=== PATIENT | female | born 1990 | race Caucasian/White ===

== ENCOUNTER 2018-10-23 20:12 | Emergency (ER) | payer SELFPAY ==
[~2018-10-23] VITALS: Ht 170.2 cm; Wt 104.3 kg
--- OUTSIDE RECORDS SUMMARY | 2018-10-23 20:14 | XMS REPORT | Continuity of Care Document ---
Author Author [facility] Interface Address Unknown Phone Unavailable Problems Problem Status Onset Date Classification Date Reported Comments Source 15460 X 10 Active 05/24/2015 [facility] MPDS - Myofacial pain dysfunction syndrome<sup>1</sup> Active 03/01/2015 Problem 10/15/2018 Data migrated from [employer] on 09/08/15. Carries FM dx as well. Originally documented as Fibromyalgia. [facility] Obstructive sleep apnea syndrome<sup>2</sup> Active 03/01/2015 Problem 10/15/2018 Data migrated from [employer] on 09/08/15. Untreated. Originally documented as EARL (obstructive sleep apnea). [facility] Group Refractory migraine without aura<sup>3</sup> Active 03/01/2015 Problem 10/15/2018 Data migrated from [employer] on 09/08/15. Intractable daily migraine with very severe migraines weekly. No response to propranolol and only temporary response to TPM. She did not tolerate nortriptyline though I am not sure that the problem was not being off of Cymbalta. Meanwhile, she was listed at the last appt as having not responded to VPA which was mistaken. She has not taken the medication. Originally documented as Common migraine with intractable migraine. [facility] Fibromyalgia Active Problem 07/29/2015 Paulino Malik EARL Active Problem 07/29/2015 Paulino Moody Common migraine with intractable migraine Active Problem 07/29/2015 Paulino Moody Obstructive sleep apnea Active Diagnosis 07/29/2015 Paulino Malik Memory loss Active Problem 10/15/2018 [facility] Anxiety Active Problem 10/15/2018 [facility] Depression Active Problem 10/15/2018 [facility] Headache Active Problem 10/15/2018 [facility] Myalgia Active Problem 10/15/2018 [facility] Obesity Active Problem 10/15/2018 [facility] Medications Medication Details Route Status Patient Instructions Ordering Provider Order Date Source DULoxetine 60 mg oral delayed release capsule See Instructions, # 30 ea, TAKE ONE (1) CAPSULE(S) BY MOUTH DAILY AT BEDTIME., 05/24/18 11:46:04 CDT, Pharmacy: [facility] No Longer Active 03/27/2018 Medical Group DULoxetine 30 mg oral delayed release capsule See Instructions, # 30 ea, TAKE ONE (1) CAPSULE(S) BY MOUTH DAILY., Pharmacy: [facility] Active 03/27/2018 Medical Group DULoxetine 60 mg oral delayed release capsule See Instructions, # 30 ea, Refill(s) 1, TAKE ONE (1) CAPSULE(S) BY MOUTH DAILY AT BEDTIME., Pharmacy: [facility] Active 01/23/2018 [facility] Group DULoxetine 30 mg oral delayed release capsule See Instructions, # 30 ea, Refill(s) 1, TAKE ONE (1) CAPSULE(S) BY MOUTH DAILY., Pharmacy: [facility] Active 01/23/2018 [facility] Group DULoxetine 60 mg oral delayed release capsule See Instructions, # 30 ea, TAKE ONE (1) CAPSULE(S) BY MOUTH DAILY AT BEDTIME., Pharmacy: [facility] Active 12/19/2017 [facility] Group DULoxetine 30 mg oral delayed release capsule See Instructions, # 30 ea, TAKE ONE (1) CAPSULE(S) BY MOUTH DAILY., Pharmacy: [facility] Inactive 12/19/2017 [facility] Group DULoxetine 60 mg oral delayed release capsule See Instructions, # 30 ea, Refill(s) 1, TAKE ONE (1) CAPSULE(S) BY MOUTH DAILY AT BEDTIME., Pharmacy: [facility] No Longer Active 10/17/2017 [facility] Group DULoxetine 30 mg oral delayed release capsule See Instructions, # 30 ea, Refill(s) 1, TAKE ONE (1) CAPSULE(S) BY MOUTH DAILY., Pharmacy: [facility] Inactive 10/17/2017 [facility] Group DULoxetine 30 mg oral delayed release capsule See Instructions, # 30 ea, TAKE ONE (1) CAPSULE(S) BY MOUTH DAILY., Pharmacy: [facility] No Long[facility] Active 09/20/2017 [facility] Group DULoxetine 60 mg oral delayed release capsule See Instructions, # 30 ea, TAKE ONE (1) CAPSULE(S) BY MOUTH DAILY AT BEDTIME., Pharmacy: [facility] Active 09/20/2017 [facility] Group DULoxetine 60 mg oral delayed release capsule See Instructions, # 30 ea, TAKE ONE (1) CAPSULE(S) BY MOUTH DAILY AT BEDTIME., Pharmacy: [facility] [place] Active 08/12/2017 Medical Group DULoxetine 30 mg oral delayed release capsule See Instructions, # 30 ea, TAKE ONE (1) CAPSULE(S) BY MOUTH DAILY., Pharmacy: [facility] [place] Inactive 08/12/2017 Medical Group Hydrocodone-Acetaminophen 1 tablet as needed Orally Active 5- 325 MG Orally every four hours Moody 03/29/2015 Paulino Malik Depakote ER 1 tablet Orally Active 500 mg Orally daily at bedtime Moody 02/27/2015 Paulino Malik Nortriptyline HCl 1 capsule for 3 days then 2 for 3 days then 3 for 3 days then 4 thereafter Orally Active 10 mg Orally once every night Moody 01/02/2015 Paulino Moody Duloxetine HCl tk 1 c po qd Oral Active 60 MG Oral once a day Moody Paulino Malik Sumatriptan Succinate 1 injection Subcutaneous Active 6 MG/0.5ML Subcutaneous twice a day (bid) as needed (prn) Malik Paulino Malik Sodium Bicarbonate 1 tablet Orally Active 650 MG Orally twice a day (bid) Moody Paulino Malik Zonisamide 5 capsules Oral Active 100 mg Oral Once a day Malik Paulino Moody Allergies, Adverse Reactions, Alerts Substance Category Reaction Severity Reaction type Status Date Reported Comments Source N.K.D.A. Adverse Reaction Info Not Available Adverse Reaction Active 02/27/2015 Paulino Malik Immunizations Immunization Date Given Site Status Last Updated Comments Source Results Order Name Results Value Reference Range Date Interpretation Comments Source Vital Signs Vital Sign Value Date Comments Source Weight 190.6 02/27/2015 Paulino Malik Height 67 02/27/2015 Paulino Moody Heart Rate 91 02/27/2015 Paulino Malik Diastolic (mm Hg) 81 02/27/2015 Paulino Moody Systolic (mm Hg) 117 02/27/2015 Paulino Malik Encounters Location Location Details Encounter Type Encounter Number Reason For Visit Attending Provider ADM Date DC Date Status Source Paulino Gan [place], [place] Migraine Headache started 12 years ago;Something came up. Cancelled on 06/10/14 at 4:11 PM. [id number] 01/02/2015 01/02/2015 Paulino Gan MD, PA Migraine Headache started 12 years ago;Something came up. Cancelled on 06/10/14 at 4:11 PM. [id number] 01/02/2015 01/02/2015 Paulino Gan MD, PA Migraine Headache started 12 years ago;Something came up. Cancelled on 06/10/14 at 4:11 PM. [id number] 01/02/2015 01/02/2015 Paulino Gan MD, PA Migraine Headache started 12 years ago;Something came up. Cancelled on 06/10/14 at 4:11 PM. [id number] 01/02/2015 01/02/2015 Paulino Gan MD, [place] Nortiptyline side effects [id number] 01/27/2015 01/27/2015 Paulino Gan MD, [place] Nortiptyline side effects [id number] 01/27/2015 01/27/2015 Paulino Gan MD, [place] Nortiptyline side effects [id number] 01/27/2015 01/27/2015 Paulino Gan MD, [place] Nortiptyline side effects [id number] 01/27/2015 01/27/2015 Paulino Gan MD, PA 3 mo fu [id number] 02/27/2015 02/27/2015 Paulino Gan MD, PA 3 mo fu [id number] 02/27/2015 02/27/2015 Paulino Gan MD, PA 3 mo fu [id number] 02/27/2015 02/27/2015 Paulino Gan MD, PA 3 mo fu [id number] 02/27/2015 02/27/2015 Paulino Gan MD, PA Doctors letter [id number] 03/05/2015 03/05/2015 Paulino Gan MD, PA Doctors letter [id number] 03/05/2015 03/05/2015 Paulino Gan MD, [place] Doctors letter [id number] 03/05/2015 03/05/2015 Paulino Gan MD, [place] Doctors letter [id number] 03/05/2015 03/05/2015 Paulino Gan MD, [place] [id number] 03/05/2015 03/05/2015 Paulino Gan MD, [place] [id number] 03/05/2015 03/05/2015 Paulino Gan MD, [place] [id number] 03/05/2015 03/05/2015 Paulino Gan MD, [place] [id number] 03/05/2015 03/05/2015 Paulino Gan [facility] [id number] NICHOLAS ELLIOTT 04/21/2015 Active [facility] Outpatient [id number] DIONYSIA JEANNE 05/09/2015 Active [facility] Outpatient [id number] DIONYSIA JEANNE 05/26/2015 Active [facility] Outpatient [id number] Non Physician 06/05/2015 06/06/2015 [facility] Outpatient [id number] DIONYSIA JEANNE 06/11/2015 Active [facility] Outpatient [id number] DIONYSIA JEANNE 07/15/2015 Active [facility] Paulino Gan MD, PA Needs referral [id number] 07/25/2015 07/25/2015 Paulino Gan Outpatient [id number] DIONYSIA JEANNE 07/30/2015 Active [facility] Outpatient [id number] NICHOLAS ELLIOTT 09/18/2015 Active [facility] Outpatient [id number] DIONYSIA JEANNE 10/20/2015 Active [facility] Outpatient [id number] DIONYSIA JEANNE 01/15/2016 Active [facility] Outpatient [id number] DIONYSIA JEANNE 02/24/2016 Active [facility] Outpatient [id number] DIONYSIA JEANNE 06/23/2016 Active [facility] Outpatient [id number] DIONYSIA JEANNE 08/12/2016 Active [facility] Outpatient [id number] NICHOLAS ELLIOTT 09/30/2016 Active [facility] Outpatient [id number] DIONYSIA JEANNE 02/03/2017 Active [facility] Phone Message [id number] 08/12/2017 08/14/2017 Medical Group [facility] Phone Message [id number] 09/20/2017 09/22/2017 Medical Group [facility] Phone Message [id number] 10/17/2017 10/19/2017 Medical Group Outpatient [id number] HALIMA FLURY 11/08/2017 Active [facility] Ambulatory Pre-Reg [id number] Halima Flury 11/08/2017 11/08/2017 Medical Group [facility] Phone Message [id number] 12/19/2017 12/21/2017 [facility] Phone Message [id number] 01/23/2018 01/25/2018 [facility] Phone Message [id number] 01/23/2018 01/25/2018 [facility] Phone Message [id number] 03/27/2018 03/29/2018 [facility] Phone Message [id number] 05/01/2018 05/03/2018 Medical [facility] Outpatient [id number] HALIMA MACKAY 05/24/2018 Active [facility] Outpatient [id number] HALIMA MACKAY 05/23/2019 Active [facility] Procedures Procedure Code Date Perfomer Comments Source Implantation of electronic stimulator into peripheral nerve<sup>1</sup> [id number] 02/26/2016 Dr. Rader in [facility]
--- OUTSIDE RECORDS SUMMARY | 2018-10-23 20:15 | XMS REPORT | Summary of Care ---
Author Author [facility] Address Unknown Phone Unavailable Encounter BOAZ Kumar(AZRA) [id number] Date(s): 06/05/15 - 06/05/15 [place] [address]173 [address] [phone] Discharge Disposition: Home Attending Physician: Physician, Non Associated MD Referring Physician: Physician, Non Associated MD Vital Signs No data available for this section Problem List Condition Effective Dates Status Health Status Informant Memory Active loss(Confirmed) Anxiety(Confirmed) Active Depression(Confirmed Active ) Headache(Confirmed) Active Myalgia(Confirmed) Active Allergies, Adverse Reactions, Alerts Substance Reaction Severity Status NKDA Active Medications No data available for this section Results No data available for this section Immunizations No data available for this section Procedures No data available for this section Social History Social History Type Response 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 Other: lives with 6yr old daughter and 15 month son. Smoking Status Current every day smoker; Exposure to Tobacco Smoke self; Cigarette Smoking Last 365 Days Yes; Reg Smoking Cessation Counseling Yes Assessment and Plan No data available for this section
--- OUTSIDE RECORDS SUMMARY | 2018-10-23 20:15 | XMS REPORT | Summary of Care ---
Author Author [facility] Organization [facility] Address Unknown Phone Unavailable Encounter BOAZ Kumar(FIN) [id number] Date(s): 01/23/18 - 01/24/18 [facility] [address], [facility] [address] [place] [address]- [phone] Vital Signs No data available for this section Problem List Condition Effective Dates Status Health Status Informant Memory Active loss(Confirmed) Anxiety(Confirmed) Active Depression(Confirmed Active ) Headache(Confirmed) Active MPDS - Myofacial 03/01/15 Active pain dysfunction syndrome(Confirmed)1 Myalgia(Confirmed) Active Obesity(Confirmed) Active Obstructive sleep 03/01/15 Active apnea syndrome(Confirmed)2 Refractory migraine 03/01/15 Active without aura(Confirmed)3 1Data migrated from [employer] on 09/08/15. Carries FM dx as well. Originally documented as Fibromyalgia. 2Data migrated from [employer] on 09/08/15. Untreated. Originally documented as EARL (obstructive sleep apnea). 3Data migrated from [employer] on 09/08/15. Intractable daily migraine with very severe migraines weekly. No response to propranolol and only temporary resp onse to TPM. She did not tolerate nortriptyline though I am not sure that the pr oblem was not being off of Cymbalta. Meanwhile, she was listed at the last appt as having not responded to VPA which was mistaken. She has not taken the medicat ion. Originally documented as Common migraine with intractable migraine. Allergies, Adverse Reactions, Alerts Substance Reaction Severity Status NKDA Active Medications DULoxetine 30 mg oral delayed release capsule See Instructions, # 30 ea, Refill(s) 1, TAKE ONE (1) CAPSULE(S) BY MOUTH DAILY., Pharmacy: [facility] [place] Start Date: 01/23/18 Status: Ordered DULoxetine 60 mg oral delayed release capsule See Instructions, # 30 ea, Refill(s) 1, TAKE ONE (1) CAPSULE(S) BY MOUTH DAILY A T BEDTIME., [facility]: [facility] [place] Start Date: 01/23/18 Status: Ordered Results No data available for this section Immunizations No data available for this section Procedures Procedure Date Related Diagnosis Body Site Status Implantation of electronic stimulator into 02/26/16 Completed peripheral nerve1 1Dr. Prasanth in [place] Social History Social History Type Response Employment/School Status: Employed. 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 Wants to be a [facility] [employer] psychologist.. Other: Single (), lives with 2 children (7yr old daughter and 2 yr son). Smoking Status Current every day smoker; Type: Cigarettes; Ready to change: No; Concerns about tobacco use in household: No; Exposure to Tobacco Smoke self; Cigarette Smoking Last 365 Days Yes; Reg Smoking Cessation Counseling Yes entered on: 09/30/16 Assessment and Plan No data available for this section
--- OUTSIDE RECORDS SUMMARY | 2018-10-23 20:15 | XMS REPORT | Summary of Care ---
Author Author [facility] Organization [facility] Address Unknown Phone Unavailable Encounter BOAZ Kumar(FIN) [id number] Date(s): 10/17/17 - 10/18/17 [facility] [address], [address] [address]- [phone] Vital Signs No data available for this section Problem List Condition Effective Dates Status Health Status Informant Memory Active loss(Confirmed) Anxiety(Confirmed) Active Depression(Confirmed Active ) Headache(Confirmed) Active MPDS - Myofacial 03/01/15 Active pain dysfunction syndrome(Confirmed)1 Myalgia(Confirmed) Active Obesity(Confirmed) Active Obstructive sleep 03/01/15 Active apnea syndrome(Confirmed)2 Refractory migraine 03/01/15 Active without aura(Confirmed)3 1Data migrated from [employer] on 09/08/15. Carries FM dx as well. Originally documented as Fibromyalgia. 2Data migrated from [employer] on 09/08/15. Untreated. Originally documented as EARL (obstructive sleep apnea). 3Data migrated from [employer] on 09/08/15. Intractable daily migraine with very [...] ONE (1) CAPSULE(S) BY MOUTH DAILY., Pharmacy: [facility] [place] Start Date: 10/17/17 Stop Date: 2/26/18 Status: Completed DULoxetine 60 mg oral delayed release capsule See Instructions, # 30 ea, Refill(s) 1, TAKE ONE (1) CAPSULE(S) BY MOUTH DAILY A T BEDTIME., Pharmacy: [facility] [place] Start Date: 10/17/17 Stop Date: 12/19/17 Status: Completed Results No data available for this section Immunizations No data available for this section Procedures Procedure Date Related Diagnosis Body Site Status Implantation of electronic stimulator into 02/26/16 Completed peripheral nerve1 1Dr. Prasanth in [place] Social History Social History Type Response Employment/School Status: Employed. 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 Wants to be a [facility] [employer] psychologist.. Other: Single (), lives with [...]
--- OUTSIDE RECORDS SUMMARY | 2018-10-23 20:15 | XMS REPORT ---
Author Author Paulino Gan Organization [employer] Address Unknown Phone Unavailable Care Team Providers Care Distance Learning Program Coordinator Name Role Phone Paulino Gan CP Unavailable Encounters Encounter Location [place] Paulino Gan [place], [place] March 05, 2015 Doctors letter Paulino Gan MD, [place] March 05, 2015 Migraine Headache started 12 years ago;Something came up. Cancelled on 06/10/14 at 4:11 PM. Paulino Gan MD, PA January 02, 2015 Nortiptyline side effects Paulino Gan MD, PA January 27, 2015 3 mo fu Paulino Gan MD, PA February 27, 2015 Problems Problem Type Condition ICD-9 Code Onset Dates Condition Status Problem Fibromyalgia 729.1 Active Problem EARL (obstructive sleep apnea) 327.23 Active Problem Common migraine with intractable migraine 346.11 Active Social History Social History Element Qualifiers Date Reported Highest level of education completed: . College February 27, 2015 Tobacco Use: . Are you a: current smoker 4 cigarettes a day February 27, 2015 Use of recreational / street drugs? . Answer: No February 27, 2015 Marital Status: . February 27, 2015 Caffeine intake? . Status: Yes, What type: Tea,Soft Drinks,1 -2 can(s)/bottle(s) a day February 27, 2015 Do you exercise? . Answer: No February 27, 2015 Do you drink alcohol? . 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
--- OUTSIDE RECORDS SUMMARY | 2018-10-23 20:15 | XMS REPORT ---
Author Author Paulino Gan Organization [employer] Address Unknown Phone Unavailable Care Team Providers Care Cosmetic Maker Name Role Phone Paulino Gan CP Unavailable [...]
--- OUTSIDE RECORDS SUMMARY | 2018-10-23 20:15 | XMS REPORT ---
Author Author Paulino Gan [employer] Address Unknown Phone Unavailable Care Team Providers Care Assembly Loader Name Role Phone Paulino Gan CP Unavailable Allergies, Adverse Reactions, Alerts Substance Reaction Event Type N.K.D.A. Info Not Available Non Drug Allergy Encounters Encounter Location Date Out of the [...] Common migraine with intractable migraine 346.11 Active Assessment EARL (obstructive sleep apnea) 327.23 Active Assessment Common migraine with intractable migraine 346.11 Active Assessment Fibromyalgia 729.1 Active Medications Medication Code System Code Instructions Start Date End Date Status Dosage Hydrocodone-Acetaminophen [facility] [address]-27 5-325 MG Orally every four hours Mar 29, 2015 Active 1 tablet as needed Nortriptyline HCl [facility] [address]-44 10 mg Orally once every night January 02, 2015 Active 1 capsule for 3 days then 2 for 3 days then 3 for 3 days then 4 thereafter Duloxetine HCl [facility] [address]-44 60 MG Oral once a day Active tk 1 c po qd Sumatriptan Succinate [facility] [address]-14 6 MG/0.5ML Subcutaneous twice a day (bid) as needed (prn) Active 1 injection Depakote ER [facility] [address]-70 500 mg Orally daily at bedtime February 27, 2015 Active 1 tablet Sodium Bicarbonate [facility] [address]-98 650 MG Orally twice a day (bid) Active 1 tablet Zonisamide [facility] [address]-44 100 mg Oral Once a day Active 5 capsules Social History Social History Element Qualifiers Date [...] 2015 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
--- OUTSIDE RECORDS SUMMARY | 2018-10-23 20:15 | XMS REPORT | Summary of Care ---
Author Author [facility] Organization [facility] Address Unknown Phone Unavailable Encounter BOAZ Kumar(FIN) [id number] Date(s): 03/27/18 - 03/28/18 [facility] [address], [facility] [address] [place] [address]- [phone] Vital Signs No data available for this section Problem List Condition Effective Dates Status Health Status Informant Memory Active loss(Confirmed) Anxiety(Confirmed) Active Depression(Confirmed Active ) Headache(Confirmed) Active MPDS - Myofacial 03/01/15 Active pain dysfunction syndrome(Confirmed)1 Myalgia(Confirmed) Active Obesity(Confirmed) Active Obstructive sleep 03/01/15 Active apnea syndrome(Confirmed)2 Refractory migraine 03/01/15 Active without aura(Confirmed)3 1Data migrated from [employer] on 09/08/15. Carries FM dx as well. Originally documented as Fibromyalgia. 2Data migrated from [employer] on 09/08/15. Untreated. Originally documented as EARL (obstructive sleep apnea). 3Data migrated from [employer] on 09/08/15. Intractable daily migraine with very [...] ONE (1) CAPSULE(S) BY MOUTH DAILY., Pharmacy: [facility] [place] Start Date: 03/27/18 Status: Ordered DULoxetine 60 mg oral delayed release capsule See Instructions, # 30 ea, TAKE ONE (1) CAPSULE(S) BY MOUTH DAILY AT BEDTIME., 1 11:46:04 CDT, [facility]: [facility] [place] Start Date: 03/27/18 Stop Date: 05/24/18 Status: Completed Results No data available for this section Immunizations No data available for this section Procedures Procedure Date Related Diagnosis Body Site Status Implantation of electronic stimulator into 02/26/16 Completed peripheral nerve1 1Dr. Prasanth in [place] Social History Social History Type Response Employment/School Status: Employed. 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 Wants to be a [employer] psychologist.. Other: Single (), lives with 2 children (7yr old daughter and 2 yr son). Smoking Status Current every day smoker; Type: Cigarettes; Ready to change: No; Concerns about tobacco use in household: No; Exposure to Tobacco Smoke self; Cigarette Smoking Last 365 Days Yes; Reg Smoking Cessation Counseling Yes entered on: 05/24/18 Assessment and Plan No data available for this section
--- OUTSIDE RECORDS SUMMARY | 2018-10-23 20:15 | XMS REPORT | Summary of Care ---
Author Author [facility] Organization [facility] Address Unknown Phone Unavailable Encounter BOAZ Kumar(FIN) [id number] Date(s): 12/19/17 - 12/20/17 [facility] [address], [address] [address] [phone] Vital Signs No data available for this section Problem List Condition Effective Dates Status Health Status Informant Memory Active loss(Confirmed) Anxiety(Confirmed) Active Depression(Confirmed Active ) Headache(Confirmed) Active MPDS - Myofacial 03/01/15 Active pain dysfunction syndrome(Confirmed)1 Myalgia(Confirmed) Active Obesity(Confirmed) Active Obstructive sleep 03/01/15 Active apnea syndrome(Confirmed)2 Refractory migraine 03/01/15 Active without aura(Confirmed)3 1Data migrated from [employer] on 09/08/15. Carries FM dx as well. Originally documented as Fibromyalgia. 2Data migrated from [employer] on 09/08/15. Untreated. Originally documented as EARL (obstructive sleep apnea). 3Data migrated from [employer] on 09/08/15. Intractable daily migraine with very [...] (1) CAPSULE(S) BY MOUTH DAILY., [facility]: [facility] Start Date: 12/19/17 Stop Date: 12/19/17 Status: Completed DULoxetine 60 mg oral delayed release capsule See Instructions, # 30 ea, TAKE ONE (1) CAPSULE(S) BY MOUTH DAILY AT BEDTIME., P [facility]: [facility] [place] Start Date: 12/19/17 Status: Ordered Results No data available for this section Immunizations No data available for this section Procedures Procedure Date Related Diagnosis Body Site Status Implantation of electronic stimulator into 02/26/16 Completed peripheral nerve1 1Dr. Prasanth in [place] Social History Social History Type Response Employment/School Status: Employed. 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 Wants to be a [facility] psychologist.. Other: Single (), lives with [...]
--- OUTSIDE RECORDS SUMMARY | 2018-10-23 20:15 | XMS REPORT | Summary of Care ---
Author Author [facility] Neurology [facility] Organization [facility] Address Unknown Phone Unavailable Encounter BOAZ Kumar(FIN) [id number] Date(s): 12/19/17 - 12/20/17 [facility] 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 Carries FM dx as well. Originally documented as Fibromyalgia. 2Data migrated from [employer] on 09/08/15. Untreated. Originally documented as EARL (obstructive sleep apnea). 3Data migrated from [employer] on 09/08/15. Intractable daily migraine with very [...] DAILY AT BEDTIME., P [facility]: [facility] [place] Start Date: 12/19/17 Status: Ordered Results No data available for this section Immunizations No data available for this section Procedures Procedure Date Related Diagnosis Body Site Status Implantation of electronic stimulator into 02/26/16 Completed peripheral nerve1 1Dr. Prasanth in [place] Social History Social History Type Response Employment/School Status: Employed. 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 Wants to be a [facility] psychologist.. Other: Single (), lives [...]
--- OUTSIDE RECORDS SUMMARY | 2018-10-23 20:15 | XMS REPORT | Summary of Care ---
Author Author [facility] Organization [facility] Address Unknown Phone Unavailable Encounter HQ José(FIN) [id number] Date(s): 05/01/18 - 05/02/18 [facility]rology [facility] 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 Carries FM dx as well. Originally documented as Fibromyalgia. 2Data migrated from [employer] on 09/08/15. Untreated. Originally documented as EARL (obstructive sleep apnea). 3Data migrated from [employer] on 09/08/15. Intractable daily migraine with very [...] electronic stimulator into 02/26/16 Completed peripheral nerve1 1DrMercedes Rader in [place] Social History Social History Type Response Employment/School Status: Employed. 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, on-line) for school psychology, will complete in about 2020. Wants to be a [facility] psychologist.. Other: Single (), lives with [...]
--- OUTSIDE RECORDS SUMMARY | 2018-10-23 20:15 | XMS REPORT | Summary of Care ---
Author Author [facility]rology [facility] Organization [facility] Neu[facility] Address Unknown Phone Unavailable Encounter BOAZ Kumar(FIN) [id number] Date(s): 09/20/17 - 09/21/17 [facility] Neurology [facility] 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 Carries FM dx as well. Originally documented as Fibromyalgia. 2Data migrated from [employer] on 09/08/15. Untreated. Originally documented as EARL (obstructive sleep apnea). 3Data migrated from [employer] on 09/08/15. Intractable daily migraine with very [...] MOUTH DAILY., Pharmacy: [facility] Start Date: 09/20/17 Stop Date: 10/17/17 Status: Completed DULoxetine 60 mg oral delayed release capsule See Instructions, # 30 ea, TAKE ONE (1) CAPSULE(S) BY MOUTH DAILY AT BEDTIME., P [facility]: [facility] [place] Start Date: 09/20/17 Stop Date: 10/17/17 Status: Completed Results No data available for this section Immunizations No data available for this section Procedures Procedure Date Related Diagnosis Body Site Status Implantation of electronic stimulator into 02/26/16 Completed peripheral nerve1 1Dr. Prasnath in [place] Social History Social History Type Response Employment/School Status: Employed. 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 Wants to be a [facility] psychologist.. Other: Single (), lives with [...]
--- OUTSIDE RECORDS SUMMARY | 2018-10-23 20:15 | XMS REPORT | Summary of Care ---
Author Author [facility] Organization [facility] Address Unknown Phone Unavailable Encounter BOAZ Kumar(AZRA) [id number] Date(s): 11/08/17 - 11/08/17 [facility] 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 Carries FM dx as well. Originally documented as Fibromyalgia. 2Data migrated from [employer] on 09/08/15. Untreated. Originally documented as EARL (obstructive sleep apnea). 3Data migrated from [employer] on 09/08/15. Intractable daily migraine with very [...] 02/26/16 Completed peripheral nerve1 1Dr. Prasanth in [place] Social History Social History Type Response Employment/School Status: Employed. 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 Wants to be a [facility] psychologist.. Other: Single (), lives with [...]
--- OUTSIDE RECORDS SUMMARY | 2018-10-23 20:15 | XMS REPORT ---
Author Author Dr. Paulino Gan Organization [employer] Address Unknown Phone Unavailable Care Team Providers Care Headstart Teacher Name Role Phone Dr. Paulino Gan CP Unavailable Encounters Encounter Location [place] March 05, 2015 Doctors letter Paulino Gan [place] March 05, 2015 Needs referral Paulino [place], [place] Jul 25, 2015 Migraine Headache started 12 years ago;Something [...] migraine with intractable migraine 346.11 Active Assessment Obstructive sleep apnea G47.33 Active Social History Social History Element Qualifiers [...]
--- OUTSIDE RECORDS SUMMARY | 2018-10-23 20:15 | XMS REPORT | Summary of Care ---
Author Author [facility] Neurology [facility] Organization [facility] Address Unknown Phone Unavailable Encounter BOAZ Kumar(AZRA) [id number] Date(s): 08/12/17 - 08/13/17 [facility] Neurology [facility] 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 Carries FM dx as well. Originally documented as Fibromyalgia. 2Data migrated from [employer] on 09/08/15. Untreated. Originally documented as EARL (obstructive sleep apnea). 3Data migrated from [employer] on 09/08/15. Intractable daily migraine with [...] CAPSULE(S) BY MOUTH DAILY., Pharmacy: [facility] [place] Start Date: 08/12/17 Stop Date: 08/12/17 Status: Completed DULoxetine 60 mg oral delayed release capsule See Instructions, # 30 ea, TAKE ONE (1) CAPSULE(S) BY MOUTH DAILY AT BEDTIME.[place] [facility]: [facility] [place] Start Date: 08/12/17 Status: Ordered Results No data available for this section Immunizations No data available for this section Procedures Procedure Date Related Diagnosis Body Site Implantation of electronic stimulator into 02/26/16 peripheral nerve1 1Dr. Prasanth in [place] Social History Social History Type Response Employment/School Status: Employed. 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 Wants to be a [facility].. Other: Single (), lives with [...]
--- OUTSIDE RECORDS SUMMARY | 2018-10-23 20:15 | XMS REPORT | Summary of Care ---
Author Author [facility] Neurology [facility] Organization [facility] Neu[facility] Address Unknown Phone Unavailable Encounter BOAZ Kumar(FIN) [id number] Date(s): 01/23/18 - 01/24/18 [facility] Neurology [facility] 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 Carries FM dx as well. Originally documented as Fibromyalgia. 2Data migrated from [employer] on 09/08/15. Untreated. Originally documented as EARL (obstructive sleep apnea). 3Data migrated from [employer] on 09/08/15. Intractable daily migraine with very [...] 02/26/16 Completed peripheral nerve1 1DrMercedes Rader in [place] Social History Social History Type Response Employment/School Status: Employed. 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 Wants to be a [facility] psychologist.. Other: Single (), lives with [...]
[2018-10-23 21:45] LABS: BASOPHILS # (AUTO) 0.1 (0.0-0.1); BASOPHILS % 0.6 % (0.0-1.0); EOSINOPHILS # (AUTO) 0.3 (0.0-0.4); EOSINOPHILS % 2.6 % (0.0-6.0); HEMATOCRIT 31.4 % (34.2-44.1); HEMOGLOBIN 8.9 g/dL (12.0-16.0); LYMPHOCYTES # (AUTO) 2.4 (1.0-3.2); LYMPHOCYTES % 21.1 % (18.0-39.1); MEAN CORPUSCULAR HEMOGLOBIN 20.6 pg (28-32); MEAN CORPUSCULAR HGB CONC 28.3 g/dL (31-35); MEAN CORPUSCULAR VOLUME 72.9 fL (81-99); MONOCYTES # (AUTO) 0.8 (0.2-0.8); MONOCYTES % 7.1 % (4.4-11.3); NEUTROPHILS # (AUTO) 7.7 (2.1-6.9); NEUTROPHILS % 68.2 % (38.7-80.0); PLATELET COUNT 284 x10e3/uL (140-360); RED BLOOD COUNT 4.31 x10e6/uL (3.6-5.1)
[2018-10-23 21:50] LABS: BILIRUBIN,URINE NEGATIVE (NEGATIVE); CLARITY,URINE HAZY (CLEAR); COLOR,URINE YELLOW (YELLOW); KETONES,URINE NEGATIVE (NEGATIVE); LEUKOCYTE ESTERASE ,URINE TRACE (NEGATIVE); NITRITE,URINE NEGATIVE (NEGATIVE); PROTEIN,URINE DIPSTICK NEGATIVE (NEGATIVE); URINE UROBILINOGEN 0.2 mg/dL (0.2 - 1)
[2018-10-23 21:51] LABS: AMPHETAMINES SCREEN,URINE NEGATIVE (NEGATIVE); BACTERIA,URINE MODERATE /HPF; BENZODIAZEPINES SCREEN,URINE NEGATIVE (NEGATIVE); EPITHELIAL CELLS,URINE MODERATE /LPF; PHENCYCLIDINE SCREEN,URINE NEGATIVE (NEGATIVE); PREGNANCY TEST, URINE NEGATIVE (NEGATIVE); RBC,URINE 0-5 /HPF (0-5)
[2018-10-23 21:58] LABS: ALANINE AMINOTRANSFERASE 31 IU/L (0-55); ALBUMIN 3.8 g/dL (3.5-5.0); ALBUMIN/GLOBULIN RATIO 1.1 (0.8-2.0); ALKALINE PHOSPHATASE 116 IU/L (40-150); AMYLASE 59 U/L (25-125); ANION GAP 11.7 mmol/L (8-16); BLOOD UREA NITROGEN 9 mg/dL (7-26); BUN/CREATININE RATIO 13 (6-25); CALCIUM 9.1 mg/dL (8.4-10.2); CARBON DIOXIDE 24 mmol/L (22-29); CHLORIDE 104 mmol/L (98-107); CREATININE, SERUM 0.69 mg/dL (0.57-1.11); EST GLOMERULAR FILTRATION RATE > 60 ML/MIN (60-); GLUCOSE 114 mg/dL (74-118); LIPASE 34 U/L (8-78); POTASSIUM 3.7 mmol/L (3.5-5.1); SODIUM 136 mmol/L (136-145)
[2018-10-23] MEDS ORDERED: IOPAMIDOL 370 MG/ML 200 ML INFUS..BTL INJ ONE (22:29)
[2018-10-23] MEDS ORDERED: SODIUM CHLORIDE 0.9% 50ML 50 ML ONE (22:29)
--- NOTE | 2018-10-23 23:06 | Diagnostic Imaging Report ---
EXAM: CT Abdomen and Pelvis WITH contrast INDICATION: LOWER ABD PAIN COMPARISON: None. TECHNIQUE: Abdomen and pelvis were scanned utilizing a multidetector helical scanner from the lung base to the pubic symphysis after administration of IV contrast. Coronal and sagittal reformations were obtained. Routine protocol was performed. Scan was performed when during portal venous phase. IV CONTRAST: 100 mL of Isovue-370 ORAL CONTRAST: Water COMPLICATIONS: None RADIATION DOSE: Total DLP: 873.2 mGy*cm Estimated effective dose: (DLP x 0.015 x size factor) mSv CTDIvol has been reviewed. It is below the limits set by the Radiation Protocol Committee (RPC). FINDINGS: LINES and TUBES: None. LOWER THORAX: Unremarkable HEPATOBILIARY: No focal hepatic lesions. No biliary ductal dilation. GALLBLADDER: No radio-opaque stones or sludge. No wall thickening. SPLEEN: No splenomegaly. PANCREAS: No focal masses or ductal dilatation. ADRENALS: No adrenal nodules KIDNEYS/URETERS: Kidneys enhance symmetrically. No hydronephrosis. No cystic or solid mass lesions. No stones. GI TRACT: No abnormal distention, wall thickening, or evidence of bowel obstruction. Appendix is normal. PELVIC ORGANS/BLADDER: Fallopian tube closure devices. Left ovarian corpus luteum. LYMPH NODES: No lymphadenopathy. VESSELS: Unremarkable. PERITONEUM / RETROPERITONEUM: No free air or fluid. BONES: Unremarkable. SOFT TISSUES: There is a fat containing para-umbilical hernia without evidence of strangulation. IMPRESSION: No acute abnormalities. Signed by: DR. Levon Guo MD on 10/23/2018 11:03 PM
== END 2018-10-23 23:51 | disposition home or self-care (01) ==
LOC: ER 20:12
DX: R10.31 Right lower quadrant pain (principal); N30.90 Cystitis, unspecified without hematuria; R05 Cough; F32.9 Major depressive disorder, single episode, unspecified; F17.210 Nicotine dependence, cigarettes, uncomplicated
CPT/HCPCS: 36415; 74177; 80053; 80307; 81001; 81025; 82150; 83690; 85025; 99284; Q9967

== ENCOUNTER → 2021-08-12 | Outpatient (CLI) | payer BC | LOC: RAD 12:18 | PROVIDERS: ATTEND Family Medicine | DX: R06.02 Shortness of breath (principal) | CPT/HCPCS: 71046 ==